=== PATIENT | male | born 1960 | race Caucasian/White ===

== ENCOUNTER 2016-11-05 13:15 | Emergency (ER) | payer SELFPAY ==
[~2016-11-05] VITALS: Ht 170.2 cm; Wt 74.8 kg
--- NOTE | 2016-11-05 13:45 | RAD ---
Portable chest, 11/05/2016: History: Chest pain The heart size and pulmonary vascularity are normal. No pulmonary infiltrates are seen. There is no evidence of pleural fluid. IMPRESSION: No acute cardiopulmonary abnormality is detected.
[2016-11-05] MEDS ORDERED: NITROGLYCERIN SUBLINGUAL 0.4 MG BOTTLE OF 25. SL PRN (14:00)
[2016-11-05] MEDS ORDERED: FENTANYL PF 100 MCG/2 ML VIAL. IV PRN (14:00)
[2016-11-05 14:16] LABS: BASO % 1 % (0-3); EOS % 2 % (0-3); HEMATOCRIT 34.8 % (39.0-53.0); HEMOGLOBIN 11.7 g/dL (13.0-17.5); LYMPH # 1.2 x10^3/uL (1.0-4.8); LYMPH % 19 % (24-48); MEAN CORPUSCULAR HEMOGLOBIN 28 pg (25-35); MEAN CORPUSCULAR HGB CONC 34 g/dL (31-37); MEAN CORPUSCULAR VOLUME 85 fL (79-100); MONO % 20 % (0-9); NEUT % 59 % (31-73); PLATELET COUNT 183 x10^3/uL (140-400); RED BLOOD COUNT 4.11 x10^6/uL (4.30-5.70); RED CELL DISTRIBUTION WIDTH 13.5 % (11.5-14.5); WHITE BLOOD COUNT 6.3 x10^3/uL (4.0-11.0)
[2016-11-05 14:20] VITALS: BP 129/72
--- NOTE | 2016-11-05 15:15 | ED.ADGEN ---
Past Medical History Past Medical History: Hypertension, AL, Other Additional Past Medical Histor: OA Past Surgical History: Angioplasty, Other Additional Past Surgical Histo: CARDIAC STENT,BILAT HAND SURG Additional Information: 0.5 TO 0.75 PPD Alcohol Use: None Drug Use: None Adult General Chief Complaint Chief Complaint: CHEST PAIN HPI HPI Patient is a 56 year old man, history of hypertension, CAD with AL 1 year ago, who presents with multiple complaints. Patient states that he was experiencing chest pain this morning located in the left upper portion of his chest, states it experiencing similar pain previously, but that he ran out of all his medications including his nitroglycerin over 4 months ago. He states the pain lasted for about 20-30 minutes, and has not recurred. Was associated mild shortness of breath. Denies any radiation, any nausea or vomiting, any weakness emesis or tingling, any injuries. Patient states he is currently homeless, was previously staying with his [facility], but cannot return there at this time. He denies any injuries, any sick contacts or exposures, states that this weekend he was feeling "sort of like I had the flu", with some nasal congestion , rhinorrhea, and nonproductive cough. No GI or complaints. Denies any fevers. States that those symptoms have improved at this time. No swelling extremities, no history of DVT or PE. He states he is not currently have a primary care provider. Review of Systems Review of Systems Constitutional: Denies fever or chills. [] Generalized malaise. Eyes: Denies change in visual acuity. [] HENT: Denies nasal congestion or sore throat. [] Respiratory: Denies cough or shortness of breath. [] Cardiovascular: Left anterior chest wall pain, currently resolved. GI: Denies abdominal pain, nausea, vomiting, bloody stools or diarrhea. [] : Denies dysuria. [] Musculoskeletal: Denies back pain or joint pain. [] Integument: Denies rash. [] Neurologic: Denies headache, focal weakness or sensory changes. [] Endocrine: Denies polyuria or polydipsia. [] Lymphatic: Denies swollen glands. [] Psychiatric: Denies depression or anxiety. [] Current Medications Current Medications Current Medications Medications (Trade) Dose Ordered Sig/Rebeca Start Time Stop Time Status Last Admin Dose Admin Fentanyl Citrate (Fentanyl 2ml Vial) 25 mcg PRN Q15MIN PRN 11/05/16 14:00 11/05/16 14:50 DC Nitroglycerin (Nitrostat) 0.4 mg PRN Q5MIN PRN 11/05/16 14:00 11/05/16 14:50 DC Allergies Allergies Allergies Coded Allergies Type Severity Reaction Last Updated Verified ibuprofen Allergy Intermediate "BREAK OUT & ITCH" 11/05/16 Yes Physical Exam Physical Exam Constitutional: Well developed, well nourished, no acute distress, non-toxic appearance. [] HENT: Normocephalic, atraumatic, bilateral external ears normal, oropharynx moist, no oral exudates, nose normal. [] Eyes: PERRLA, EOMI, conjunctiva normal, no discharge. [] Neck: Normal range of motion, no tenderness, supple, no stridor. [] Cardiovascular:Heart rate regular rhythm, no murmur, S1, S2, no rubs or gallops. No chest wall tenderness or crepitus. [] Lungs & Thorax: Bilateral breath sounds clear to auscultation, no wheezing, rhonchi, rales. [] Abdomen: Bowel sounds normal, soft, no tenderness, no masses, no pulsatile masses. [] Skin: Warm, dry, no erythema, no rash. [] Back: No tenderness, no CVA tenderness. [] Extremities: No tenderness, no cyanosis, no clubbing, ROM intact, no edema. Negative Homans sign. [] Neurologic: Alert and oriented X 3, normal motor function, normal sensory function, no focal deficits noted. [] Psychologic: Affect normal, judgement normal, mood normal. [] Current Patient Data Vital Signs Vital Signs Date Time Temp Pulse Resp B/P Pulse Ox O2 Delivery O2 Flow Rate FiO2 11/05/16 14:20 96 24 129/72 99 Room Air 11/05/16 13:27 98.3 98.3 Lab Values Laboratory Tests Test 11/05/16 13:55 White Blood Count 6.3x10^3/uL (4.0-11.0) Red Blood Count 4.11x10^6/uL (4.30-5.70) L Hemoglobin 11.7g/dL (13.0-17.5) L Hematocrit 34.8% (39.0-53.0) L Mean Corpuscular Volume 85fL (79-100) Mean Corpuscular Hemoglobin 28pg (25-35) Mean Corpuscular Hemoglobin Concent 34g/dL (31-37) Red Cell Distribution Width 13.5% (11.5-14.5) Platelet Count 183x10^3/uL (140-400) Neutrophils (%) (Auto) 59% (31-73) Lymphocytes (%) (Auto) 19% (24-48) L Monocytes (%) (Auto) 20% (0-9) H Eosinophils (%) (Auto) 2% (0-3) Basophils (%) (Auto) 1% (0-3) Neutrophils # (Auto) 3.7x10^3uL (1.8-7.7) Lymphocytes # (Auto) 1.2x10^3/uL (1.0-4.8) Monocytes # (Auto) 1.3x10^3/uL (0.0-1.1) H Eosinophils # (Auto) 0.1x10^3/uL (0.0-0.7) Basophils # (Auto) 0.0x10^3/uL (0.0-0.2) Platelet Estimate Pending Laboratory Tests 11/05/16 13:55 EKG EKG EC: Sinus rhythm, heart rate 95 bpm, QTC of 410, IL 158, QRS of 96, patient with enlarged T-waves noted throughout all leads, contour abnormality is noted in the inferior and anterior septal leads, with mild baseline artifact , Q waves noted in lead 3, equivocal axis, no depressions, abnormal ECG, does not meet STEMI criteria. [As interpreted by me.] Radiology/Procedures Radiology/Procedures [] [facility] [address] [place] [address] IMAGING REPORT Signed PATIENT: PADMINI PRITCHARD ACCOUNT: [id number] : 1960 LOCATION: ER AGE: 56 SEX: M EXAM STATUS: PRE ER ORD. PHYSICIAN: CHIVO MASTERS DO REASON: CP PROCEDURE: PORTABLE CHEST 1V Portable chest, 11/05/2016: History: Chest pain The heart size and pulmonary vascularity are normal. No pulmonary infiltrates are seen. There is no evidence of pleural fluid. IMPRESSION: No acute cardiopulmonary abnormality is detected. DICTATED and SIGNED BY: MINI BROWN MD DATE: 11/05/16 [id number] CC: CHIVO MASTERS DO ~ Course & Med Decision Making Course & Med Decision Making Pertinent Labs and Imaging studies reviewed. (See chart for details) Patient is not previously been seen in this emergency department. He is agreeable to receiving laboratory studies, ECG, x-ray, and evaluation of his reported chest pain, I also discussed with him that we could put him in touch with rn social work, and senior living opportunities, we discussed the fact that it is important for him to have a primary care provider due to his health history, need for medication monitoring and management. As stated patient is denying any symptoms at this time. Chest x-ray obtained was unremarkable, while patient was awaiting the rest of his labs, he informed the nurse that he wished to sign AGAINST MEDICAL ADVICE. I went to speak with the patient, he told me that he "I don't feel as though my goals are being met". He declined to elaborate further, and stated that "I just want to sign out right now". I did discuss with the patient that this would be AGAINST MEDICAL ADVICE, as it would be prudent for him to continue his evaluation at this time, to rule out any concerning findings causes chest pain, as he is not followed with a doctor for some time and has a concerning health history and to ensure that his general health is intact, and that we would be able to provide him with a short course of his home medications if he were to be discharged. Reiterated opportunities for social assistance as well. Patient was not interested in staying in the ED any longer, he is alert and oriented 4, paperwork was completed with nurse Christina, patient did exit the ED without difficulty. Dragon Disclaimer Dragon Disclaimer This electronic medical record was generated, in whole or in part, using a voice recognition dictation system. Departure Impression: Primary Impression: Chest pain Additional Impression: Noncompliance with medication regimen Disposition: AGAINST MEDICAL ADVICE Condition: STABLE Problem Qualifiers Primary Impression: Chest pain Chest pain type: unspecified Qualified Code: R07.9 - Chest pain, unspecified CHIVO MASTERS DO Nov 05, 2016 15:15
[2016-11-05 16:19] LABS: % EOS 1 % (0-5); PLT ESTIMATE ADEQUATE (ADEQUATE)
--- NOTE | 2016-11-06 06:30 | EKG ---
[facility] [address] [place] [address] Test Date: 2016-11-05 Test Time: 13:21:27 Pat Name: PADMINI PRITCHARD Department: Room: Gender: M [employer]: : 1960 Requested By: CHIVO MASTERS Order Number: [id number] Reading MD: Bull Luu Measurements Intervals [place] Rate: 95 P: 64 NM: 158 QRS: 12 QRSD: 96 T: 25 QT: 324 QTc: 410 Interpretive Statements SINUS RHYTHM CONSIDER INFERIOR INFARCT Electronically Signed On 11-07-2016 9:53:47 HONEY LIQUEFIER by Bull Luu
== END 2016-11-05 14:45 | disposition left against medical advice (07) ==
LOC: ER 13:15
DX: R07.89 Other chest pain (principal); I10 Essential (primary) hypertension; I25.10 Atherosclerotic heart disease of native coronary artery without angina pectoris; I25.2 Old myocardial infarction; M19.90 Unspecified osteoarthritis, unspecified site; F17.210 Nicotine dependence, cigarettes, uncomplicated; Z95.5 Presence of coronary angioplasty implant and graft; Z88.6 Allergy status to analgesic agent; Z91.14 Patient's other noncompliance with medication regimen; Z59.0 Homelessness
CPT/HCPCS: 36415; 71010; 85007; 85027; 93005; 99285-25